=== PATIENT | female | born 1945 | race Caucasian/White ===

== ENCOUNTER 2016-07-21 07:58 | Emergency (ER) | payer MEDICARE, OTHER ==
[2016-07-21] MEDS ORDERED: OXYCODONE-ACETAMINOPHEN 5-325 MG TABLET PO ONE (09:21)
[2016-07-21] MEDS ORDERED: PREDNISONE 20 MG TABLET PO ONE (09:21)
[2016-07-21] MEDS ORDERED: IPRATROPIUM/ALBUTEROL 0.5-2.5 MG/3 ML AMPUL NEB ONE (09:21)
--- NOTE | 2016-07-21 09:31 | ER Document Report ---
ED Respiratory Problem - General Mode of Arrival: Ambulatory Information source: Patient TRAVEL OUTSIDE OF THE [place] IN LAST 30 DAYS: No - HPI Patient complains to provider of: Cough Onset: Last week Duration: Continuous Context: Hx COPD, Smoker Cough: Productive Sputum color: Green, White At home treatment: Bronchodilators Associated symptoms: Congestion, Cough, Difficulty breathing, Runny nose <JOSÉ GREENBERG - Last Filed: 07/21/16 10:22> <RACHEL GALLO - Last Filed: 07/21/16 11:21> - General Chief Complaint: Breathing Difficulty Stated Complaint: DIFFICULTY BREATHING Notes: Patient is a 71-year-old female presenting to the emergency department concerned of difficulty breathing onset 1 week ago. Patient states that she has been having a productive cough with green/white sputum. Patient also complains of her ribs being sore from coughing and she has been having some congestion. Patient admits to having the flu vaccine and pneumonia vaccine. (JOSÉ GREENBERG) - Related Data Allergies/Adverse Reactions: codeine Allergy (Verified 07/21/16 08:01) levofloxacin [From Levaquin] Allergy (Verified 07/21/16 08:01) morphine Allergy (Verified 07/21/16 08:01) Penicillins Allergy (Verified 07/21/16 08:01) Past Medical History - General Information source: Patient - Social History Smoking Status: Current Every Day Smoker Chew tobacco use (# tins/day): No Frequency of alcohol use: None Drug Abuse: None Lives with: Spouse/Significant other Family History: Reviewed & Not Pertinent Patient has suicidal ideation: No Patient has homicidal ideation: No - Past Medical History Cardiac Medical History: Reports: Hx Atrial Fibrillation, Hx Coronary Artery Disease, Hx Heart Attack, Hx Hypercholesterolemia, Hx Hypertension Pulmonary Medical History: Reports: Hx COPD Endocrine Medical History: Reports: Hx Hypothyroidism GI Medical History: Reports: Hx Gastroesophageal Reflux Disease Psychiatric Medical History: Reports: Hx Depression Past Surgical History: Reports: Hx Cardiac Catheterization, Hx Carotid Endarterectomy, Hx Cholecystectomy, Hx Coronary Artery Bypass Graft, Hx Coronary Stent, Hx Hysterectomy, Other - Hx Gastric Sleeve - Immunizations History of Influenza Vaccine for 04/2016 - 09/2016 Season: Yes History of Pneumococcal Vaccine: Yes <JOSÉ GREENBERG - Last Filed: 07/21/16 10:22> Review of Systems - Review of Systems Constitutional: No symptoms reported EENT: See HPI, Nose congestion Cardiovascular: No symptoms reported Respiratory: See HPI, Cough, Hurts to breathe - Rib pain from cough and deep breathing, Sputum, Other - Difficulty breathing Gastrointestinal: No symptoms reported Genitourinary: No symptoms reported Female Genitourinary: No symptoms reported Musculoskeletal: No symptoms reported Skin: No symptoms reported Hematologic/Lymphatic: No symptoms reported Neurological/Psychological: No symptoms reported -: Yes All other systems reviewed and negative <JOSÉ GREENBERG - Last Filed: 07/21/16 10:22> Physical Exam - Vital signs Interpretation: Hypertensive - General General appearance: Appears well, Alert - HEENT Head: Normocephalic, Atraumatic Eyes: Normal Pupils: PERRL Nasal: Clear rhinorrhea - Respiratory Respiratory status: No respiratory distress Chest status: Pain with cough Breath sounds: Productive cough, Rhonchi, Wheezing - Cardiovascular Rhythm: Regular Heart sounds: Normal auscultation Murmur: No - Abdominal Inspection: Obese Distension: No distension Bowel sounds: Normal Tenderness: Nontender Organomegaly: No organomegaly - Back Back: Normal, Nontender - Extremities General upper extremity: Normal inspection, Nontender, Normal color, Normal ROM , Normal temperature General lower extremity: Normal inspection, Nontender, Normal color, Normal ROM , Normal temperature - Neurological Neuro grossly intact: Yes Cognition: Normal Orientation: AAOx4 Ryder Coma Scale Eye Opening: Spontaneous Ryder Coma Scale Verbal: Oriented Ryder Coma Scale Motor: Obeys Commands Ryder Coma Scale Total: 15 Speech: Normal - Psychological Associated symptoms: Normal affect, Normal mood - Skin Skin Temperature: Warm Skin Moisture: Dry Skin Color: Normal <JOSÉ GREENBERG - Last Filed: 07/21/16 10:22> Course <JOSÉ GREENBERG - Last Filed: 07/21/16 10:22> - Laboratory Result Diagrams: 07/21/16 10:15 07/21/16 10:15 <RACHEL GALLO - Last Filed: 07/21/16 11:21> - Re-evaluation Re-evalutation: 07/21/16 11:19 Patient reports that she has chronic atrial flutter and fib which is controlled with medication. She also relates when questioned about it that she is on Coumadin, this was not on her list she provided earlier. She states she does have plenty of medicine for her nebulizer at home. (RACHEL GALLO) - Vital Signs Vital signs: Temp Pulse Resp BP Pulse Ox 98.1 F 78 20 137/87 H 96 07/21/16 08:04 07/21/16 08:04 07/21/16 08:04 07/21/16 08:04 07/21/16 08:04 (JOSÉ GREENBERG) (RACHEL GALLO) - Laboratory Laboratory results interpreted by me: 07/21/16 07/21/16 10:15 10:15 MCV 98 H RDW 14.3 H Chloride 108 H Calcium 8.3 L Alkaline Phosphatase 129 H Total Protein 6.2 L (RACHEL GALLO) Discharge <JOSÉ GREENBERG - Last Filed: 07/21/16 10:22> <RACHEL GALLO - Last Filed: 07/21/16 11:21> - Discharge Clinical Impression: COPD with exacerbation, Rib pain on left side Atrial flutter Qualifiers: Atrial flutter type: unspecified Qualified Code(s): I48.92 - Unspecified atrial flutter Condition: Stable Disposition: HOME, SELF-CARE Additional Instructions: Continue your regular medications. Abdomen medications as prescribed, start the prednisone tomorrow. Usual nebulizer as needed for wheezing. Try Robitussin-DM for cough suppression. Follow-up with a local medical doctor if not improving. RETURN TO THE EMERGENCY ROOM IF ANY NEW OR WORSENING SYMPTOMS. Prescriptions: Oxycodone HCl/Acetaminophen [Percocet 5-325 mg Tablet] 1 tab PO ASDIR PRN #15 tablet PRN Reason: Prednisone [Deltasone 10 mg Tablet] 10 mg PO ASDIR PRN #21 tablet PRN Reason: Forms: Return to Work Referrals: [facility] [Primary Care Provider] - Follow up as needed Scribe Attestation: 07/21/16 11:21 I personally performed the services described in the documentation, reviewed and edited the documentation which was dictated to the scribe in my presence, and it accurately records my words and actions. (RACHEL GALLO) Scribe Documentation <JOSÉ GREENBERG - Last Filed: 07/21/16 10:22> <RACHEL GALLO - Last Filed: 07/21/16 11:21> - Scribe Written by Scribe:: RACHEL GALLO MD, SCRIBE 07/21/16 1110 Acting as scribe for: [facility] Gallo ([facility]) (RACHEL GALLO)
[2016-07-21 10:38] LABS: ABSOLUTE LYMPHOCYTES (AUTO) 1.8 10^3/uL (0.5-4.7); ABSOLUTE MONOCYTES (AUTO) 0.7 10^3/uL (0.1-1.4); ABSOLUTE NEUT (AUTO) 4.9 10^3/uL (1.7-8.2); BASOPHILS % (AUTO) 0.5 % (0-2); EOSINOPHILS % (AUTO) 0.5 % (0-6); HEMATOCRIT 40.3 % (36.0-47.0); HEMOGLOBIN 13.7 g/dL (12.0-15.5); HGB HCT DIFFERENCE 0.8; LYMPHOCYTES % (AUTO) 23.6 % (13-45); MEAN CORPUSCULAR HEMOGLOBIN 33.4 pg (27.0-33.4); MEAN CORPUSCULAR VOLUME 98 fl (80-97); MONOCYTES % (AUTO) 9.6 % (3-13); RED BLOOD COUNT 4.09 10^6/uL (3.72-5.28); RED CELL DISTRIBUTION WIDTH 14.3 % (11.5-14.0); SEGMENTED NEUTROPHILS % (AUTO) 65.8 % (42-78); WHITE BLOOD COUNT 7.5 10^3/uL (4.0-10.5)
[2016-07-21 10:54] LABS: ALANINE AMINOTRANSFERASE 19 U/L (9-52); ALBUMIN 3.5 g/dL (3.5-5.0); ALKALINE PHOSPHATASE 129 U/L (38-126); ANION GAP 10 (5-19); ASPARTATE AMINO TRANSFERASE 21 U/L (14-36); BILIRUBIN,TOTAL 0.4 mg/dL (0.2-1.3); BLOOD UREA NITROGEN 14 mg/dL (7-20); CALCIUM 8.3 mg/dL (8.4-10.2); CARBON DIOXIDE 27 mmol/L (22-30); CHLORIDE 108 mmol/L (98-107); CREATINE KINASE 44 U/L (30-135); CREATININE RESULT 0.53 mg/dL (0.52-1.25); GLUCOSE 87 mg/dL (75-110); POTASSIUM 3.9 mmol/L (3.6-5.0); SODIUM 144.8 mmol/L (137-145); TOTAL PROTEIN 6.2 g/dL (6.3-8.2)
[2016-07-21 11:06] LABS: CREATINE KINASE MB 1.63 ng/mL (<4.55); TROPONIN I 0.022 ng/mL
[2016-07-21 11:31] VITALS: BP 140/88
--- NOTE | 2016-07-22 15:01 | EKG REPORT ---
SEVERITY:- ABNORMAL ECG - AFIB/FLUTTER BORDERLINE PROLONGED QT INTERVAL : Confirmed by: Ivet Cohen 22-Jul-2016 15:01:03
== END 2016-07-21 11:20 | disposition home or self-care (01) ==
LOC: ER 07:58
DX: J44.1 Chronic obstructive pulmonary disease with (acute) exacerbation (principal); R07.81 Pleurodynia; I48.92 Unspecified atrial flutter; R06.02 Shortness of breath; R05 Cough; F17.210 Nicotine dependence, cigarettes, uncomplicated
CPT/HCPCS: 93005; 94640; 99285; 36415; 87205; 82553; 82550; 85025; 80053; 84484; 71020; 71100; 93010; A9270 ×3; J7512; J7620

== ENCOUNTER → 2017-02-13 | Outpatient (CLI) | payer MEDICARE ==
--- NOTE | 2017-02-14 11:21 | XCELERA REPORT ---
[address] [address] Lower Extremity Arterial Evaluation Name: SHANE BLANCHARD Age: 71 yrs Gender: Female : 1945 Patient Status: Outpatient Patient Location: Study Date: 02/13/2017 01:24 PM Procedure: A color flow and duplex scan of the lower extremity arteries was performed bilaterally with velocity and waveform anaylsis. Ankle brachial indicies performed. Reason For Study: PVD Ordering Physician: OZ VARGAS Performed By: Cory Burgos Measurements and Calculations Right Left EVENT MARKETING SPECIALIST PSV 147.7 160.5 cm/sec Prox PFA PSV -166.0 -113.9 cm/sec Dist SFA PSV -122.9 -83.5 cm/sec Dist Pop A PSV 106.1 187.6 cm/sec Prox RALF PSV 127.0 cm/sec Mid RALF PSV 73.8 cm/sec Dist RALF PSV 21.2 19.8 cm/sec Dist [employer] MANAGER PSV -19.5 94.3 cm/sec Ko Pedis PSV 38.2 20.2 cm/sec Right Side Arterial Evaluation Mildly abnormal velocity and biphasic waveforms noted from the Common Femoral artery to the Popliteal artery . Monophasic anterior and Posterior Tibial arteries with Anterior Tibial occlusion, biphasic reconstitution. 0-19% stenosis at the Aorta Iliac, with sequential disease.. Ankle Brachial index is 0.83. Left Side Arterial Evaluation Normal velocity and triphasic waveforms noted from the Common Femoral artery. to the Popliteal artery. Biphasic in the infrageniculate vessels. Occlusion in the Anterior Tibial with monophasic reconstitution in the Dorsalis pedis artery. 20-49% stenosis at the infrageniculate vessel;lis with sequential changes. Ankle Brachial index is 0.9. Interpretation Summary Moderate hemodynamically significant lesions in the bilateral lower extremities, on duplex imaging, at rest. Multilevel disease with apparently good collaterals. : OZ VARGAS > Mikhail Garcia
== END ==
LOC: SP 12:50
PROVIDERS: ATTEND Specialist
DX: I73.9 Peripheral vascular disease, unspecified (principal)
CPT/HCPCS: 93925

== ENCOUNTER → 2017-05-29 | Outpatient (CLI) | payer MEDICARE, OTHER ==
[2017-05-29 10:59] LABS: CHOLESTEROL 193.59 mg/dL (0-200); Direct HDL 66 mg/dL (>40); TRIGLYCERIDES 94 mg/dL (<150)
[2017-05-29 11:10] LABS: DIRECT LDL 106 mg/dL (<100)
== END ==
LOC: OD 09:40
PROVIDERS: ATTEND Internal Medicine Cardiovascular Disease
DX: I48.2 Chronic atrial fibrillation (principal); R06.02 Shortness of breath; E03.9 Hypothyroidism, unspecified; E78.00 Pure hypercholesterolemia, unspecified
CPT/HCPCS: 36415; 80061; 83735; 83880; 84443

== ENCOUNTER → 2017-05-31 | Outpatient (CLI) | payer MEDICARE, OTHER ==
[2017-05-31 14:58] LABS: HEMATOCRIT 42.3 % (36.0-47.0); HEMOGLOBIN 14.4 g/dL (12.0-15.5); HGB HCT DIFFERENCE 0.9; MEAN CORPUSCULAR HEMOGLOBIN 33.6 pg (27.0-33.4); MEAN CORPUSCULAR HGB CONC 33.9 g/dL (32.0-36.0); MEAN CORPUSCULAR VOLUME 99 fl (80-97); RED BLOOD COUNT 4.28 10^6/uL (3.72-5.28); RED CELL DISTRIBUTION WIDTH 14.9 % (11.5-14.0)
[2017-05-31 15:05] LABS: APPEARANCE,URINE CLEAR; BILIRUBIN,URINE NEGATIVE (NEGATIVE); GLUCOSE, URINE NEGATIVE (NEGATIVE); KETONES,URINE NEGATIVE (NEGATIVE); LEUKOCYTE ESTERASE,URINE NEGATIVE (NEGATIVE); NITRITE,URINE NEGATIVE (NEGATIVE); PROTEIN,URINE NEGATIVE (NEGATIVE); URINE SPECIFIC GRAVITY 1.016; UROBILINOGEN,URINE NEGATIVE mg/dL (<2.0)
[2017-05-31 15:33] LABS: ALANINE AMINOTRANSFERASE 30 U/L (9-52); ALBUMIN 4.3 g/dL (3.5-5.0); ALKALINE PHOSPHATASE 107 U/L (38-126); ANION GAP 12 (5-19); ASPARTATE AMINO TRANSFERASE 27 U/L (14-36); BILIRUBIN,DIRECT 0.5 mg/dL (0.0-0.4); BILIRUBIN,TOTAL 0.7 mg/dL (0.2-1.3); BLOOD UREA NITROGEN 17 mg/dL (7-20); CALCIUM 9.3 mg/dL (8.4-10.2); CARBON DIOXIDE 27 mmol/L (22-30); CHLORIDE 107 mmol/L (98-107); CREATININE RESULT 0.72 mg/dL (0.52-1.25); GLUCOSE 75 mg/dL (75-110); POTASSIUM 4.3 mmol/L (3.6-5.0); SODIUM 146.4 mmol/L (137-145); TOTAL PROTEIN 7.1 g/dL (6.3-8.2)
== END ==
LOC: OD 09:51
PROVIDERS: ATTEND Internal Medicine Cardiovascular Disease
DX: Z79.01 Long term (current) use of anticoagulants (principal); Z79.899 Other long term (current) drug therapy
CPT/HCPCS: 36415; 80048; 80076; 81001; 82272; 85027; 85730

== ENCOUNTER → 2017-06-09 | Outpatient (CLI) | payer MEDICARE, OTHER ==
--- NOTE | 2017-06-09 10:25 | RADIOLOGY REPORT (SQ) ---
EXAM DESCRIPTION: CT ABDOMEN WITH IV ORAL CONT COMPLETED DATE/TIME: 06/09/2017 9:14 am REASON FOR STUDY: AAA W/O RUPTURE (I71.4) I71.4 ABDOMINAL AORTIC ANEURYSM, WITHOUT RUPTURE COMPARISON: MRI lumbar spine dated 11/10/2016. TECHNIQUE: CT scan of the abdomen performed with intravenous and with oral contrast using helical sc anning technique with dynamic intravenous contrast injection. Images reviewed with lung, soft tissue, and bone windows. Reconstructed coronal and sagittal MPR images reviewed. Delayed images for evaluat ion of the urinary system also acquired and evaluated. All images stored on PACS. All CT scanners at this facility use dose modulation, iterative reconstruc tion, and/or weight based dosing when appropriate to reduce radiation dose to as low as reasonably ac hievable (ALARA). [facility]: Dose Right [facility]: CareDose [facility]: Dose Right [facility]: Teradose 4D [facility]: MyCoop CONTRAST TYPE AND DOSE: contrast/concentration: Isovue 370.00 mg/ml; Total Contrast Delivered: 100.0 ml; Total Saline Delivered: 33.1 ml RENAL FUNCTION: BUN 17 creatinine 0.72. RADIATION DOSE: CT Rad equipment meets quality standard of care and radiation dose reduction techniq ues were employed. CTDIvol: 25.1 - 29.2 mGy. DLP: 1913 mGy-cm. . LIMITATIONS: None. FINDINGS: LOWER CHEST: No significant findings. Calcified nodule in the right lung base. LIVER: Normal size. Fatty infiltration. Cysts in the left lobe measuring 1 cm and 1.8 cm. No solid masses. No dilated ducts. SPLEEN: Normal size. Punctate calcifications consistent with calcified granulomas. No focal lesions . PANCREAS: No masses. No significant calcifications. No adjacent inflammation or peripancreatic fluid collections. Pancreatic duct not dilated. GALLBLADDER: Surgically absent. ADRENAL GLANDS: No significant masses or asymmetry. RIGHT KIDNEY AND URETER: No solid masses. No significant calcifications. No hydronephrosis or hyd roureter. LEFT KIDNEY AND URETER: No solid masses. No significant calcifications. No hydronephrosis or hydr oureter. AORTA AND VESSELS: Vascular calcifications. Infrarenal abdominal aortic aneurysm measuring 4.1 cm. 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 No dissection. Renal arteries, SM A, celiac without stenosis. RETROPERITONEUM: No retroperitoneal adenopathy, hemorrhage or masses. BOWEL AND PERITONEAL CAVITY: No masses or inflammatory changes. No free fluid or peritoneal masses. APPENDIX: Normal. ABDOMINAL WALL: No masses. No hernias. BONES: No significant or acute findings. OTHER: No other significant finding. IMPRESSION: 1. INFRARENAL ABDOMINAL AORTIC ANEURYSM MEASURING 4.1 CM. 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 2. FATTY INFILTRATION OF THE LIVER WITH TWO SMALL CYSTS. 3. NO OTHER SIGNIFICANT FINDINGS. TECHNICAL DOCUMENTATION: JOB ID: [id number] Quality ID # [id number]: Final reports with documentation of one or more dose reduction techniques (e.g., Au tomated exposure control, adjustment of the mA and/or kV according to patient size, use of iterative reconstruction technique) 2010 [employer]- All Rights Reserved
== END ==
LOC: RAD 08:25
PROVIDERS: ATTEND Surgery
DX: I71.4 Abdominal aortic aneurysm, without rupture (principal)
CPT/HCPCS: 74160